=== PATIENT | female | born 2000 | race Two or more races ===

== ENCOUNTER 2024-03-09 12:19 | Emergency (ER) | payer OTHER ==
[~2024-03-09] VITALS: Ht 152.4 cm; Wt 77.8 kg
[2024-03-09 12:59] LABS: Basophils # (auto) 0 10 ^3/uL (0-0.2); Basophils % (auto) 0.5 % (0.0-2.0); Eosinophils # (auto) 0 10 ^3/uL (0-0.8); Eosinophils % (auto) 0.2 % (0.0-7.0); Hematocrit 45.1 % (36.0-46.0); Hemoglobin 15.5 g/dL (12.2-16.2); Lymphocytes # (auto) 1.9 10 ^3/uL (0.4-5.4); Lymphocytes % (auto) 24.6 % (10.0-50.0); Mean Corpuscular Hemoglobin 33.2 pg (28.0-32.0); Mean Corpuscular Hgb Conc. 34.4 g/dL (32.0-36.0); Mean Corpuscular Volume 96.4 fL (80.0-100.0); Monocytes # (auto) 0.4 10 ^3/uL (0-1.3); Monocytes % (auto) 5.3 % (0.0-12.0); Neutrophils # (auto) 5.3 10 ^3/uL (1.6-8.6); Neutrophils % (auto) 69.4 % (37.0-80.0); Red Blood Cells 4.68 10^6/uL (4.0-5.20); Red Cell Distribution Width 12.5 % (11.8-14.3); White Blood Cell 7.6 10^3/uL (4.4-10.8)
[2024-03-09 13:15] LABS: Alanine Aminotransferase 89 U/L (7-40); Albumin 4.9 g/dL (3.2-4.8); Alkaline Phosphatase 49 U/L (46-116); Anion Gap 7 (5-15); Aspartate Aminotransferase 49 U/L (13-40); BUN/Creatinine Ratio 11.4 (10.0-20.0); Blood Urea Nitrogen 8 mg/dL (9-23); Calcium 10.5 mg/dL (8.7-10.4); Carbon Dioxide 24 mmol/L (20-30); Chloride 105 mmol/L (98-107); Glucose 105 mg/dL (74-106); Potassium 3.8 mmol/L (3.5-5.1); Sodium 136 mmol/L (136-145)
[2024-03-09 13:16] LABS: Bilirubin, Total 1.5 mg/dL (0.2-1.0); Total Protein 7.9 g/dL (5.7-8.2)
[2024-03-09 15:13] VITALS: BP 113/76; PULSE 63; RESP 16; TEMP 98.3; O2SAT 100
== END 2024-03-09 15:15 | disposition home or self-care (01) ==
LOC: ER 12:19
DX: O20.0 Threatened abortion (principal); R10.2 Pelvic and perineal pain; Z3A.01 Less than 8 weeks gestation of pregnancy
CPT/HCPCS: 36415; 76801; 76817; 80053; 84702; 85025

== ENCOUNTER 2024-10-23 07:57 | Observation (INO) | payer MEDICAID ==
[~2024-10-23] VITALS: Ht 149.9 cm; Wt 98.0 kg
--- NOTE | 2024-10-23 10:42 | DVH ---
BIOPHYSICAL PROFILE HISTORY: Macrosomia Comparison Study: None TECHNIQUE: Multiple real-time grayscale sonographic images through the gravid uterus of the fetus wi th duplex Doppler color flow and M-mode spectral analysis FINDINGS: BIOPHYSICAL PROFILE: breathing score: 2 movement score: 2 tone score: 2 Quantitative JEFF score: 2 (JEFF: 7.5 Cm.) Total score: 8 The cervix is not visualized Single live fetus in cephalic presentation. heart rate 128 beats per minute. Grade 3, placenta placenta without previa or abruption IMPRESSION: Biophysical profile score: 8
--- NOTE | 2024-10-23 11:08 | DVHDS2 ---
Physician Discharge Progress N Final Diagnosis: macrosomia Operations or Procedures: Operations or Procedures nst,sono Condition on Discharge: Good Disposition: Home Discharge Instructions: Diet: Consistent carbohydrate Activity: No Restrictions, As Tolerated Medications: na Follow Up Care: Specialist: 1d Discharge Statement: "Patient was advised to return to the ER or call 911 if any headaches, dizziness, shortness of breath, chest pain, abdominal pain, bleeding, fevers, or worsening of medical condition. Patient was counseled about treatment plan, medications, possible side effects, patientverbalized understanding. All questions were answered to the best of my ability. This discharge took greater then 30 minutes in planning, reviewing documentat ion, counseling the patient, and discussing with other team members." Visit Coding OBGYN Date of Service: Oct 23, 2024 Billing Provider: SILVIA VARMA DO PROPULSION MOTOR AND GENERATOR REPAIRER Common Visit Codes: 46356-[id number] OBS CARE (HIGH) SILVIA VARMA DO Oct 23, 2024 11:07
[2024-10-24] MEDS ORDERED: PREN1TAB71 OR (13:23)
== END 2024-10-23 12:05 | disposition home or self-care (01) ==
LOC: LDRP 10:03 → UNDOADMOB 10:03 → LDRP 10:08
PROVIDERS: ADMIT Obstetrics & Gynecology; ATTEND Obstetrics & Gynecology
DX: O36.63X0 Maternal care for excessive fetal growth, third trimester, not applicable or unspecified (principal); Z3A.38 38 weeks gestation of pregnancy; Z79.899 Other long term (current) drug therapy
CPT/HCPCS: 59025; 76818; 81002; 94760; 96360; G0378

== ENCOUNTER 2024-10-24 07:06 | Observation (INO) | payer MEDICAID ==
[2024-10-24] MEDS ORDERED: PREN1TAB71 OR (13:23)
--- NOTE | 2024-10-24 14:36 | DVH ---
EXAM: US OBSTERICAL LIMITED HISTORY: low JEFF COMPARISON: 10/23/2024 TECHNIQUE: Real-time grayscale and color images of the gravid uterus were obtained. FINDINGS: Orientation: Cephalic Amniotic Fluid Index: 8.1cm, previously 7.5 cm on 10/23/2024 DVP:4.3 cm Heart Rate: 144 bpm Maternal Cervix: Closed, 3 cm in length in the transabdominal study IMPRESSION: 1. Amniotic fluid index of 8.1 cm, previously 7.5 cm.
--- NOTE | 2024-10-25 15:23 | DVHDS2 ---
Physician Discharge Progress N Final Diagnosis: macrosomia,hx of low carlee Operations or Procedures: Operations or Procedures nst,sono Condition on Discharge: Good Disposition: Home Discharge Instructions: Diet: Regular Activity: No Restrictions, As Tolerated Medications: na Follow Up Care: Specialist: monday for carlee check Discharge Statement: "Patient was advised to return to the ER or call 911 if any headaches, dizziness, shortness of breath, chest pain, abdominal pain, bleeding, fevers, or worsening of medical condition. Patient was counseled about treatment plan, medications, possible side effects, patientverbalized understanding. All questions were answered to the best of my ability. This discharge took greater then 30 minutes in planning, reviewing documentation, counseling the patient, and discussing with other team members." Visit Coding OBGYN Date of Service: Oct 24, 2024 Billing Provider: SILVIA VARMA DO HYDROELECTRIC POWERPLANT SUPERVISOR Common Visit Codes: 33811-EWC/OBS SAME DATE (HIGH) HYDROELECTRIC POWERPLANT SUPERVISOR Procedure Codes: 45423-22- NON-STRESS TEST SILVIA VARMA DO Oct 25, 2024 15:23
== END 2024-10-24 14:37 | disposition home or self-care (01) ==
LOC: LDRP 12:56
PROVIDERS: ADMIT Obstetrics & Gynecology; ATTEND Obstetrics & Gynecology
DX: O36.63X0 Maternal care for excessive fetal growth, third trimester, not applicable or unspecified (principal); O42.913 Preterm premature rupture of membranes, unspecified as to length of time between rupture and onset of labor, third trimester; Z3A.38 38 weeks gestation of pregnancy; Z79.899 Other long term (current) drug therapy; Z98.890 Other specified postprocedural states
CPT/HCPCS: 59025; 76815; 81002; G0378

== ENCOUNTER 2024-10-27 10:04 | Inpatient (IN) | payer MEDICAID ==
[~2024-10-27] VITALS: Ht 149.9 cm; Wt 95.7 kg
[~2024-10-27 10:04] MED LIST: PREN1TAB71 OR
[2024-10-27] MEDS ORDERED: BUTORPHANOL TARTRATE 2 MG/1 ML VIAL IV PRN ×2 (10:15)
[2024-10-27] MEDS ORDERED: LIDOCAINE 2%HCL (LOCAL ANESTH.) INJ 20ML MDV IJ PRN (10:15)
[2024-10-27 10:58] LABS: Basophils # (auto) 0 10 ^3/uL (0-0.2); Basophils % (auto) 0.6 % (0.0-2.0); Eosinophils # (auto) 0.1 10 ^3/uL (0-0.8); Eosinophils % (auto) 1.5 % (0.0-7.0); Hematocrit 36.2 % (36.0-46.0); Hemoglobin 12.3 g/dL (12.2-16.2); Lymphocytes # (auto) 1.4 10 ^3/uL (0.4-5.4); Mean Corpuscular Hemoglobin 32.2 pg (28.0-32.0); Mean Corpuscular Volume 94.5 fL (80.0-100.0); Monocytes # (auto) 0.5 10 ^3/uL (0-1.3); Monocytes % (auto) 7.9 % (0.0-12.0); Neutrophils # (auto) 4.6 10 ^3/uL (1.6-8.6); Nucleated Red Blood Cells % 0.1 %; Platelet Count (auto) 209 10^3/uL (140-450); Red Blood Cells 3.83 10^6/uL (4.0-5.20); Red Cell Distribution Width 13.7 % (11.8-14.3); White Blood Cell 6.7 10^3/uL (4.4-10.8)
[2024-10-27 11:16] LABS: Urine Bacteria FEW /hpf (None Seen); Urine Blood Negative /uL (Negative); Urine Protein, UAD 1+ (Negative); Urine Specific Gravity 1.018 (1.001-1.035); Urine Squamous Epithelial Cell MANY /hpf (<5); Urine Urobilinogen Normal (Negative); Urine WBC 73 /HPF (0-5)
[2024-10-27] MEDS: LACTATED RINGER'S 1,000 ML IV SCH (11:16)
[2024-10-27 11:18] LABS: Urine Clarity Cloudy (Clear); Urine Color Yellow (Yellow)
[2024-10-27 11:20] LABS: Amphetamine Screen, Urine Neg (NEGATIVE); Barbiturate Scree,Urine Neg (NEGATIVE); Benzodiazephine Screen, Urine Neg (NEGATIVE); Cannabinoid Screen, Urine Neg (NEGATIVE); Cocaine Screen, Urine Neg (NEGATIVE); Opiate Scree,Urine Neg (NEGATIVE); Phencyclidine Screen, Urine Neg (NEGATIVE)
[2024-10-27 11:22] LABS: Alanine Aminotransferase 21 U/L (7-40); Albumin 3.5 g/dL (3.2-4.8); Anion Gap 10 (5-15); Aspartate Aminotransferase 16 U/L (13-40); BUN/Creatinine Ratio 15.3 (10.0-20.0); Blood Urea Nitrogen 9 mg/dL (9-23); Calcium 9.5 mg/dL (8.7-10.4); Carbon Dioxide 20 mmol/L (20-31); Chloride 107 mmol/L (98-107); Glucose 102 mg/dL (74-106); Potassium 4.4 mmol/L (3.5-5.1); Sodium 137 mmol/L (136-145)
--- NOTE | 2024-10-27 11:22 | DVH ---
BIOPHYSICAL PROFILE HISTORY: low JEFF Comparison Study: October 23, 2024 TECHNIQUE: Multiple real-time grayscale sonographic images through the gravid uterus of the fetus wi th duplex Doppler color flow and M-mode spectral analysis FINDINGS: BIOPHYSICAL PROFILE: breathing score: 2 movement score: 2 tone score: 2 Quantitative JEFF score: 2 (JEFF: 9.5 Cm.) Total score: 8 Single live fetus in cephalic presentation. heart rate 151 beats per minute. Unremarkable placenta without previa or abruption Questionable nuchal cord is seen. IMPRESSION: 1. Biophysical profile score: 8 2. Unremarkable placenta without previa or abruption 3. Questionable nuchal cord is seen.
[2024-10-27 11:23] LABS: Bilirubin, Total 0.4 mg/dL (0.2-1.0); INR 0.86 (0.9-1.15); Partial Thromboplastin Time 26.5 SEC (24.5-34.5); Prothrombin Time 9.3 sec (9.3-11.8); Total Protein 5.8 g/dL (5.7-8.2)
[2024-10-27 11:26] LABS: Alkaline Phosphatase 176 U/L (46-116)
[2024-10-27] MEDS: miSOPROStol 50 MCG per PRE-CUT 1/2 TAB PO PRN (11:48)
--- NOTE | 2024-10-27 12:50 | DVHHP2 ---
OB CC & HPI Date Date of Admission: Oct 27, 2024 Patient Identification: : 1 Para: 0 EDC: Nov 05, 2024 EGA: [id number] Chief Complaints: Reason for admission: induction of labor Indication for : other Admission Nurse Assessment Rev: No History of Present Complaints PT ISADMITTED FOR IOL DUE TO LOWERING FLD And suspected macrosomia.per pt she desires to be induced.option of pcs d/wpt but pt refuses and wants a trial of labor Past Medical History Cardiac: No pertinent Hx Pulmonary: No pertinent Hx Central Nervous System: No pertinent Hx GI: No pertinent Hx Hemotology/Oncology: No pertinent Hx Hepatobiliary: No pertinent Hx Psychiatric: No pertinent Hx Musculoskeletal: No pertinent Hx Rheumotologic: No pertinent Hx Infectious Disease: No peritnent Hx ENT: No pertinent Hx Renal/: No pertinent Hx Endocrine: No pertinent Hx Dermatology: No pertinent Hx Past Surgical History: No pertinent Hx OB History OB History Care: Good Care Ultrasounds: Normal mid trimester US Obstetrical Complications: None Medical Complications: None Allergies: Coded Allergies: NO KNOWN ALLERGIES (Unverified , 03/09/24) Home Meds Reported Medications Vit W/ Ferrous Fumara (PNV PLUS MULTIVI) Plus Tab, 1 OR, TAB 10/24/24 Current Medications Current Medications Medications (Trade) Dose Ordered Sig/Lillian Route PRN Reason Start Time Stop Time Status Last Admin Lactated Ringer's 1,000 ml @ 125 mls/hr Q8H IV 10/27/24 10:15 10/27/24 11:16 Witch Monica (Tucks) 1 pad PRN PRN TOP PERINEAL AREA DISCOMFORT 10/27/24 10:15 Sodium Lauryl Sulfate (Phisoderm) 240 ml PRN PRN TOP PERINEAL AREA DISCOMFORT 10/27/24 10:15 Benzocaine (Dermoplast) 1 applic PRN PRN TOP PERINEAL AREA DISCOMFORT 10/27/24 10:15 Butorphanol Tartrate (Stadol Injection) 1 mg Q4HPRN PRN IV MODERATE PAIN (4-6 PAIN SCALE) 10/27/24 10:15 Butorphanol Tartrate (Stadol Injection) 2 mg Q4HPRN PRN IV SEVERE PAIN (7-10 PAIN SCALE) 10/27/24 10:15 Misoprostol (Cytotec) 50 mcg Q4HPRN PRN PO CERVICAL RIPENING 10/27/24 10:15 10/27/24 11:48 Lidocaine HCl (Xylocaine) 20 ml ONCE PRN IJ PERINEAL AREA DISCOMFORT 10/27/24 10:15 Family & Social History Family/Social History Blood Type: O+ Rubella: immune RPR/VDRL: Negative GBS Status: Negative HBsAG: Negative Review of Systems Constitutional: No symptom reported Ears, Nose, & Throat: No symptom reported Eyes: No symptom reported Pulmonary/Respiratory: No symptom reported Cardiovascular: No symptom reported Gastrointestinal: No symptom reported Genitourinary: No symptom reported Musculoskeletal: No symptom reported Skin: No symptom reported Psychiatric: No symptom reported Endocrine: No symptom reported Hemotologic/Lymphatic: No symptom reported OB Admission Exam Physical Exam HEENT: TMs Normal, Fontanelles Normal, Nasal Mucosa Normal, Eyes non-injected, Oropharynx Normal, PERRLA, Moist Membranes, EOMI Heart: Rhythm Normal Lungs: Clear Abdomen: Non tender Extremities: Normal Reflexes: Normal Cervical Dilatation: Fingertip Effacement: 25% Station: -3 Membranes: Intact Heart Rate: 130's Accelerations: Accelerations Present Decelerations: No Decelerations Short Term Variability: Present Wire Straightener Variability: Average (6-25) Contractions on Admission: >10 Minutes Apart Intensity: Mild OB Plan Plan Admitting Diagnosis: Induction of labor Plan: Expectant Management, Induction Induction Methd: Misoprostol protocol Other Plan: pt refsued pcs for possib of macrosomia ,she understands risks and compl of shoulder dytocia,erbs palsy,inc risk of infection .she would like trial of labor.informed consent obtained Visit Coding OBGYN Date of Service: Oct 27, 2024 Billing Provider: SILVIA VARMA DO TEMPLATE FITTER Common Visit Codes: 23400-XBH/OBS SAME DATE (HIGH) TEMPLATE FITTER Consultation Codes: 88241-Y/U INPATIENT CONSULT (HIGH) TEMPLATE FITTER Procedure Codes: 91313-60- NON-STRESS TEST SILVIA VARMA DO Oct 27, 2024 12:50
--- NOTE | 2024-10-27 13:25 | DVHPN2 ---
Chief Complaints Patient reports: No new complaints Nursing reports: No new complaints Objective Medications Current Medications Medications (Trade) Dose Ordered Sig/Lillian Route PRN Reason Start Time Stop Time Status Last Admin Benzocaine (Dermoplast) 1 applic PRN PRN TOP PERINEAL AREA DISCOMFORT 10/27/24 10:15 Butorphanol Tartrate (Stadol Injection) 1 mg Q4HPRN PRN IV MODERATE PAIN (4-6 PAIN SCALE) 10/27/24 10:15 Butorphanol Tartrate (Stadol Injection) 2 mg Q4HPRN PRN IV SEVERE PAIN (7-10 PAIN SCALE) 10/27/24 10:15 Lactated Ringer's 1,000 ml @ 125 mls/hr Q8H IV 10/27/24 10:15 10/27/24 11:16 Lidocaine HCl (Xylocaine) 20 ml ONCE PRN IJ PERINEAL AREA DISCOMFORT 10/27/24 10:15 Misoprostol (Cytotec) 50 mcg Q4HPRN PRN PO CERVICAL RIPENING 10/27/24 10:15 10/27/24 11:48 Sodium Lauryl Sulfate (Phisoderm) 240 ml PRN PRN TOP PERINEAL AREA DISCOMFORT 10/27/24 10:15 Witch Monica (Tucks) 1 pad PRN PRN TOP PERINEAL AREA DISCOMFORT 10/27/24 10:15 Others ve-unchanged exam Studies Laboratory Tests 10/27/24 10:49 Test 10/27/24 10:49 Range/Units Serum Glucose 102 74-106 mg/dL Ass/Plan Assessment iol Plan rec one cytotec having some cramping proceed with 2nd cytotec by 3:30 Visit Coding OBGYN Date of Service: Oct 27, 2024 Billing Provider: SILVIA VARMA DO TOWEL DISTRIBUTOR Common Visit Codes: 25745-[id number] INP/OBS CARE(HIGH) TOWEL DISTRIBUTOR Consultation Codes: [id number] CONSULT <20MIN TOWEL DISTRIBUTOR Procedure Codes: 76505-96- NON-STRESS TEST SILVIA VARMA DO Oct 27, 2024 13:25
[2024-10-27 19:05] LABS: Protein, Urine 46.3 mg/dL (1-14)
[2024-10-27 19:07] LABS: Creatinine, Urine 93.27 mg/dL (30.0-125.0); Urine Protein/Creatinine Ratio 0.5
[2024-10-27] MEDS: LACTATED RINGER'S 500 ML IV ONE (20:30)
[2024-10-27] MEDS ORDERED: ePHEDrine SULFATE 50 MG/ML AMP IV ONE (20:45)
[2024-10-27] MEDS ORDERED: NALOXONE HCL 0.4 MG/ML VIAL IV ONE (20:45)
--- NOTE | 2024-10-27 20:46 | DVHPN2 ---
CNM Labor Progress Note Date and Time Seen Date Seen: Oct 27, 2024 Time Seen: 19:50 Subjective Patient reports: No new complaints Monitoring Method Monitoring Method: External Heart Rate Heart Rate Baseline: 135 Heart Rate Variability: Moderate Presence of FHR Accelerations: Yes Presence of FHR Decelerations: No Changes in Trends of Patterns: No Are all 5 Components of the FH: Yes Contractions Contractions Frequency: Occasional, Other Duration of Contraction: 50 Contractions Intensity: Mild Contractions Resting Tone: Relaxed Membranes Membranes: Intact Vaginal Exam Vag Exam Deferred: No Vaginal Exam Dilation: 0 Vaginal Exam Effacement: 50 Vaginal Exam Presentation: VTX Vaginal Exam Show: None Medications Medications - Pitocin: No Medication - Epidural: No Medication - Other Misoprostol dose #3 administered at 20:01 Lab Results Lab Results Current Medications Medications (Trade) Dose Ordered Sig/Lillian Start Time Stop Time Status Last Admin Dose Admin Lactated Ringer's 1,000 ml @ 125 mls/hr Q8H 10/27/24 10:15 10/27/24 23:43 125 MLS/HR Shonna Anderson (Tucks) 1 pad PRN PRN 10/27/24 10:15 10/28/24 04:20 1 PAD Sodium Lauryl Sulfate (Phisoderm) 240 ml PRN PRN 10/27/24 10:15 10/28/24 04:20 240 ML Benzocaine (Dermoplast) 1 applic PRN PRN 10/27/24 10:15 10/28/24 04:20 1 APPLIC Misoprostol (Cytotec) 50 mcg Q4HPRN PRN 10/27/24 10:15 10/28/24 05:52 DC 10/27/24 20:01 50 MCG Oxytocin 500 ml @ 999 mls/hr Q31M ONCE 10/27/24 10:15 10/27/24 11:11 DC 10/28/24 04:33 999 MLS/HR Oxytocin 500 ml @ 125 mls/hr Q4H ONCE 10/27/24 10:45 10/27/24 14:44 DC 10/28/24 05:06 125 MLS/HR Lactated Ringer's 500 ml @ 500 mls/hr Q1H ONCE 10/27/24 20:45 10/27/24 21:44 DC 10/27/24 20:30 500 MLS/HR Hydralazine HCl (Apresoline Injection) 5 mg Q20MP PRN 10/27/24 22:30 Magnesium Sulfate 1,000 ml @ 50 mls/hr Q20H 10/27/24 23:45 Magnesium Sulfate 100 ml @ 300 mls/hr ONCE ONCE 10/27/24 23:45 10/28/24 00:04 DC Lorazepam (Ativan Inj) 4 mg ONCE ONCE 10/27/24 23:45 10/27/24 23:53 DC Cefazolin Sodium/ Dextrose 50 ml @ 50 mls/hr ONCE ONCE 10/28/24 01:00 10/28/24 01:59 DC 10/28/24 00:57 50 MLS/HR Laboratory Tests Test 10/28/24 04:37 10/27/24 10:49 10/27/24 10:35 Range/Units Magnesium Lvl (Mg Sulfate Therapy) Pending White Blood Count 6.7 4.4-10.8 10^3/uL Red Blood Count 3.83 L 4.0-5.20 10^6/uL Hemoglobin 12.3 12.2-16.2 g/dL Hematocrit 36.2 36.0-46.0 % Mean Corpuscular Volume 94.5 80.0-100.0 fL Mean Corpuscular Hemoglobin 32.2 H 28.0-32.0 pg Mean Corpuscular Hemoglobin Concent 34.0 32.0-36.0 g/dL Red Cell Distribution Width 13.7 11.8-14.3 % Platelet Count 209 140-450 10^3/uL Mean Platelet Volume 10.2 6.9-10.8 fL Neutrophils (%) (Auto) 69.0 37.0-80.0 % Lymphocytes (%) (Auto) 21.0 10.0-50.0 % Monocytes (%) (Auto) 7.9 0.0-12.0 % Eosinophils (%) (Auto) 1.5 0.0-7.0 % Basophils (%) (Auto) 0.6 0.0-2.0 % Neutrophils # (Auto) 4.6 1.6-8.6 10 ^3/uL Lymphocytes # (Auto) 1.4 0.4-5.4 10 ^3/uL Monocytes # (Auto) 0.5 0-1.3 10 ^3/uL Eosinophils # (Auto) 0.1 0-0.8 10 ^3/uL Basophils # (Auto) 0 0-0.2 10 ^3/uL Nucleated Red Blood Cells 0.1 % Prothrombin Time 9.3 9.3-11.8 sec Prothrombin Time INR 0.86 L 0.9-1.15 Activated Partial Thromboplast Time 26.5 24.5-34.5 SEC Sodium Level 137 136-145 mmol/L Potassium Level 4.4 3.5-5.1 mmol/L Chloride Level 107 98-107 mmol/L Carbon Dioxide Level 20 20-31 mmol/L Anion Gap 10 5-15 Blood Urea Nitrogen 9 9-23 mg/dL Creatinine 0.59 0.550-1.02 mg/dL Glomerular Filtration Rate Calc 128 >90 mL/min BUN/Creatinine Ratio 15.3 10.0-20.0 Serum Glucose 102 74-106 mg/dL Uric Acid 4.7 3.1-7.8 mg/dL Calcium Level 9.5 8.7-10.4 mg/dL Total Bilirubin 0.4 0.2-1.0 mg/dL Aspartate Amino Transferase (AST) 16 13-40 U/L Alanine Aminotransferase (ALT) 21 7-40 U/L Alkaline Phosphatase 176 H 46-116 U/L Total Protein 5.8 5.7-8.2 g/dL Albumin 3.5 3.2-4.8 g/dL Rapid Plasma Reagin Pending Treponema pallidum Ab (TP-PA) Pending Hepatitis C Antibody Pending Urine Color Yellow Yellow Urine Clarity Cloudy H Clear Urine pH 6.0 5.0-9.0 Urine Specific [place] 1.018 1.001-1.035 Urine Protein 1+ H Negative Urine Ketones Negative Negative Urine Blood Negative Negative /uL Urine Nitrite Negative Negative Urine Bilirubin Negative Negative Urine Urobilinogen Normal Negative mg/dL Urine Leukocyte Esterase 3+ Negative /uL Urine RBC 3 0 - 4 /hpf Urine Microscopic WBC 73 H 0-5 /HPF Urine Squamous Epithelial Cells Many <5 /hpf Urine Bacteria Few H None Seen /hpf Urine Creatinine 93.27 30.0-125.0 mg/dL Urine Protein/Creatinine Ratio 0.50 Urine Glucose Trace Normal mg/dL Urine Total Protein 46.3 H 1-14 mg/dL Urine Opiates Screen Neg NEGATIVE Urine Fentanyl Screen Neg NEGATIVE Urine Barbiturates Screen Neg NEGATIVE Urine Phencyclidine Screen Neg NEGATIVE Urine Amphetamines Screen Neg NEGATIVE Urine Benzodiazepines Screen Neg NEGATIVE Urine Cocaine Screen Neg NEGATIVE Urine Cannabinoids Screen Neg NEGATIVE Assessment Assessment IUP at 38w 5d LGA Decreased Amniotic Fluid IOL for above Pre E w/o severe features Category 1 FHR tracing Plan Plan Continue EFM per policy Encourage frequent position change to facilitate labor Intrauterine resuscitation PRN Labor analgesia PRN Anticipate Plan discussed with: Patient, Spouse, Other (Mother in law) EMELYN SAM CNM Oct 27, 2024 20:46
[2024-10-27] MEDS: ROPIVACAINE HCL 200 ML ONE (21:27)
[2024-10-27] MEDS ORDERED: TERBUTALINE SULFATE 1 MG/ML 1ML VIAL SC PRN (21:45)
--- NOTE | 2024-10-27 22:17 | DVHPN2 ---
DIPTI Labor Progress Note Date and Time Seen Date Seen: Oct 27, 2024 Time Seen: 21:54 Subjective Patient reports: No new complaints Monitoring Method Monitoring Method: External Heart Rate Heart Rate Variability: Moderate Presence of FHR Accelerations: Yes Presence of FHR Decelerations: Yes Heart Rate Type of Decel: Variable Decelerations Are all 5 Components of the FH: Yes Contractions Contractions Frequency: Other (q1-2min) Duration of Contraction: 80 Contractions Intensity: Moderate Contractions Resting Tone: Relaxed Membranes Membranes: Ruptured Amniotic Fluid Color: Clear Vaginal Exam Vag Exam Deferred: No Vaginal Exam Dilation: 3 Vaginal Exam Effacement: 70 Vaginal Exam Station: -3 Vaginal Exam Presentation: VTX Medications Medications - Pitocin: No Medication - Epidural: Yes Medication - Other Misoprostol Dose #3 at 2000 Lab Results Lab Results Current Medications Medications (Trade) Dose Ordered Sig/Lillian Start Time Stop Time Status Last Admin Dose Admin Lactated Ringer's 1,000 ml @ 125 mls/hr Q8H 10/27/24 10:15 10/27/24 23:43 125 MLS/HR Shonna Anderson (Tucks) 1 pad PRN PRN 10/27/24 10:15 10/28/24 04:20 1 PAD Sodium Lauryl Sulfate (Phisoderm) 240 ml PRN PRN 10/27/24 10:15 10/28/24 04:20 240 ML Benzocaine (Dermoplast) 1 applic PRN PRN 10/27/24 10:15 10/28/24 04:20 1 APPLIC Misoprostol (Cytotec) 50 mcg Q4HPRN PRN 10/27/24 10:15 10/28/24 05:52 DC 10/27/24 20:01 50 MCG Oxytocin 500 ml @ 999 mls/hr Q31M ONCE 10/27/24 10:15 10/27/24 11:11 DC 10/28/24 04:33 999 MLS/HR Oxytocin 500 ml @ 125 mls/hr Q4H ONCE 10/27/24 10:45 10/27/24 14:44 DC 10/28/24 05:06 125 MLS/HR Lactated Ringer's 500 ml @ 500 mls/hr Q1H ONCE 10/27/24 20:45 10/27/24 21:44 DC 10/27/24 20:30 500 MLS/HR Hydralazine HCl (Apresoline Injection) 5 mg Q20MP PRN 10/27/24 22:30 Magnesium Sulfate 1,000 ml @ 50 mls/hr Q20H 10/27/24 23:45 Magnesium Sulfate 100 ml @ 300 mls/hr ONCE ONCE 10/27/24 23:45 10/28/24 00:04 DC Lorazepam (Ativan Inj) 4 mg ONCE ONCE 10/27/24 23:45 10/27/24 23:53 DC Cefazolin Sodium/ Dextrose 50 ml @ 50 mls/hr ONCE ONCE 10/28/24 01:00 10/28/24 01:59 DC 10/28/24 00:57 50 MLS/HR Laboratory Tests Test 10/28/24 04:37 10/27/24 10:49 10/27/24 10:35 Range/Units Magnesium Lvl (Mg Sulfate Therapy) Pending White Blood Count 6.7 4.4-10.8 10^3/uL Red Blood Count 3.83 L 4.0-5.20 10^6/uL Hemoglobin 12.3 12.2-16.2 g/dL Hematocrit 36.2 36.0-46.0 % Mean Corpuscular Volume 94.5 80.0-100.0 fL Mean Corpuscular Hemoglobin 32.2 H 28.0-32.0 pg Mean Corpuscular Hemoglobin Concent 34.0 32.0-36.0 g/dL Red Cell Distribution Width 13.7 11.8-14.3 % Platelet Count 209 140-450 10^3/uL Mean Platelet Volume 10.2 6.9-10.8 fL Neutrophils (%) (Auto) 69.0 37.0-80.0 % Lymphocytes (%) (Auto) 21.0 10.0-50.0 % Monocytes (%) (Auto) 7.9 0.0-12.0 % Eosinophils (%) (Auto) 1.5 0.0-7.0 % Basophils (%) (Auto) 0.6 0.0-2.0 % Neutrophils # (Auto) 4.6 1.6-8.6 10 ^3/uL Lymphocytes # (Auto) 1.4 0.4-5.4 10 ^3/uL Monocytes # (Auto) 0.5 0-1.3 10 ^3/uL Eosinophils # (Auto) 0.1 0-0.8 10 ^3/uL Basophils # (Auto) 0 0-0.2 10 ^3/uL Nucleated Red Blood Cells 0.1 % Prothrombin Time 9.3 9.3-11.8 sec Prothrombin Time INR 0.86 L 0.9-1.15 Activated Partial Thromboplast Time 26.5 24.5-34.5 SEC Sodium Level 137 136-145 mmol/L Potassium Level 4.4 3.5-5.1 mmol/L Chloride Level 107 98-107 mmol/L Carbon Dioxide Level 20 20-31 mmol/L Anion Gap 10 5-15 Blood Urea Nitrogen 9 9-23 mg/dL Creatinine 0.59 0.550-1.02 mg/dL Glomerular Filtration Rate Calc 128 >90 mL/min BUN/Creatinine Ratio 15.3 10.0-20.0 Serum Glucose 102 74-106 mg/dL Uric Acid 4.7 3.1-7.8 mg/dL Calcium Level 9.5 8.7-10.4 mg/dL Total Bilirubin 0.4 0.2-1.0 mg/dL Aspartate Amino Transferase (AST) 16 13-40 U/L Alanine Aminotransferase (ALT) 21 7-40 U/L Alkaline Phosphatase 176 H 46-116 U/L Total Protein 5.8 5.7-8.2 g/dL Albumin 3.5 3.2-4.8 g/dL Rapid Plasma Reagin Pending Treponema pallidum Ab (TP-PA) Pending Hepatitis C Antibody Pending Urine Color Yellow Yellow Urine Clarity Cloudy H Clear Urine pH 6.0 5.0-9.0 Urine Specific [place] 1.018 1.001-1.035 Urine Protein 1+ H Negative Urine Ketones Negative Negative Urine Blood Negative Negative /uL Urine Nitrite Negative Negative Urine Bilirubin Negative Negative Urine Urobilinogen Normal Negative mg/dL Urine Leukocyte Esterase 3+ Negative /uL Urine RBC 3 0 - 4 /hpf Urine Microscopic WBC 73 H 0-5 /HPF Urine Squamous Epithelial Cells Many <5 /hpf Urine Bacteria Few H None Seen /hpf Urine Creatinine 93.27 30.0-125.0 mg/dL Urine Protein/Creatinine Ratio 0.50 Urine Glucose Trace Normal mg/dL Urine Total Protein 46.3 H 1-14 mg/dL Urine Opiates Screen Neg NEGATIVE Urine Fentanyl Screen Neg NEGATIVE Urine Barbiturates Screen Neg NEGATIVE Urine Phencyclidine Screen Neg NEGATIVE Urine Amphetamines Screen Neg NEGATIVE Urine Benzodiazepines Screen Neg NEGATIVE Urine Cocaine Screen Neg NEGATIVE Urine Cannabinoids Screen Neg NEGATIVE Consulting with Regarding Elevated BP, Labor & membrane status. (Co-managing patient with MD) Assessment Assessment IUP at 38w 5d LGA Decreased Fluid IOL for above Pre E w/o severe features Spontaneous Rupture of Membranes Category II FHR Tracing Plan Plan Expectant, supportive management of labor Manage BP with IV hydralazine Magnesium Sulfate therapy when in active labor; will start sooner if needed Continue EFM Intrauterine resuscitation PRN Frequent Position change to facilitate descent Anticipate Above plan in collaboration with Dr. Poon Plan discussed with: Patient, Spouse, Other (Mother in Law) EMELYN SAM CNM Oct 27, 2024 22:17
[2024-10-27] MEDS ORDERED: hydrALAZINE HCL 20 MG/ML VL IV PRN (22:30)
[2024-10-27] MEDS ORDERED: LORazepam 2MG/ML-1ML VIAL IV ONE (23:45)
[2024-10-27] MEDS: MAGNESIUM SULFATE 100 ML IV ONE ×2 (23:45)
[2024-10-28] VITALS (17 sets, daily range): BP systolic 122–145; BP diastolic 62–75; PULSE 63–113; RESP 16–18; TEMP 97.8–98.7; O2SAT 96–98
[2024-10-28] MEDS: MAGNESIUM SULFATE 40MG/ML 1,000 ML IV ONE (00:03)
[2024-10-28] MEDS: ceFAZolin 2 GM/D5W50ml 50 ML IV ONE (00:57)
--- NOTE | 2024-10-28 01:48 | DVHPN2 ---
DIPTI Labor Progress Note Date and Time Seen Date Seen: Oct 27, 2024 Time Seen: 23:35 Subjective Patient reports: No new complaints Monitoring Method Monitoring Method: External Heart Rate Heart Rate Baseline: 140 Heart Rate Variability: Moderate Presence of FHR Accelerations: Yes Presence of FHR Decelerations: Yes Heart Rate Type of Decel: Variable Decelerations, Late Decelerations Changes in Trends of Patterns: No Are all 5 Components of the FH: Yes Contractions Contractions Frequency: Other (2-3min) Duration of Contraction: 80 Contractions Intensity: Moderate Contractions Resting Tone: Relaxed Membranes Membranes: Ruptured Amniotic Fluid Color: Clear Vaginal Exam Vag Exam Deferred: No Vaginal Exam Dilation: 9 Vaginal Exam Effacement: 90 Vaginal Exam Station: -2 (VE by RN) Vaginal Exam Presentation: VTX Medications Medications - Pitocin: No Medication - Epidural: Yes Medication - Other Misoprostol 3rd dose given at 2000 Lab Results Lab Results Current Medications Medications (Trade) Dose Ordered Sig/Lillian Start Time Stop Time Status Last Admin Dose Admin Lactated Ringer's 1,000 ml @ 125 mls/hr Q8H 10/27/24 10:15 10/27/24 23:43 125 MLS/HR Witmarybeth Monica (Tucks) 1 pad PRN PRN 10/27/24 10:15 10/28/24 04:20 1 PAD Sodium Lauryl Sulfate (Phisoderm) 240 ml PRN PRN 10/27/24 10:15 10/28/24 04:20 240 ML Benzocaine (Dermoplast) 1 applic PRN PRN 10/27/24 10:15 10/28/24 04:20 1 APPLIC Misoprostol (Cytotec) 50 mcg Q4HPRN PRN 10/27/24 10:15 10/28/24 05:52 DC 10/27/24 20:01 50 MCG Oxytocin 500 ml @ 999 mls/hr Q31M ONCE 10/27/24 10:15 10/27/24 11:11 DC 10/28/24 04:33 999 MLS/HR Oxytocin 500 ml @ 125 mls/hr Q4H ONCE 10/27/24 10:45 10/27/24 14:44 DC 10/28/24 05:06 125 MLS/HR Lactated Ringer's 500 ml @ 500 mls/hr Q1H ONCE 10/27/24 20:45 10/27/24 21:44 DC 10/27/24 20:30 500 MLS/HR Hydralazine HCl (Apresoline Injection) 5 mg Q20MP PRN 10/27/24 22:30 Magnesium Sulfate 1,000 ml @ 50 mls/hr Q20H 10/27/24 23:45 Magnesium Sulfate 100 ml @ 300 mls/hr ONCE ONCE 10/27/24 23:45 10/28/24 00:04 DC Lorazepam (Ativan Inj) 4 mg ONCE ONCE 10/27/24 23:45 10/27/24 23:53 DC Cefazolin Sodium/ Dextrose 50 ml @ 50 mls/hr ONCE ONCE 10/28/24 01:00 10/28/24 01:59 DC 10/28/24 00:57 50 MLS/HR Laboratory Tests Test 10/28/24 04:37 10/27/24 10:49 10/27/24 10:35 Range/Units Magnesium Lvl (Mg Sulfate Therapy) Pending White Blood Count 6.7 4.4-10.8 10^3/uL Red Blood Count 3.83 L 4.0-5.20 10^6/uL Hemoglobin 12.3 12.2-16.2 g/dL Hematocrit 36.2 36.0-46.0 % Mean Corpuscular Volume 94.5 80.0-100.0 fL Mean Corpuscular Hemoglobin 32.2 H 28.0-32.0 pg Mean Corpuscular Hemoglobin Concent 34.0 32.0-36.0 g/dL Red Cell Distribution Width 13.7 11.8-14.3 % Platelet Count 209 140-450 10^3/uL Mean Platelet Volume 10.2 6.9-10.8 fL Neutrophils (%) (Auto) 69.0 37.0-80.0 % Lymphocytes (%) (Auto) 21.0 10.0-50.0 % Monocytes (%) (Auto) 7.9 0.0-12.0 % Eosinophils (%) (Auto) 1.5 0.0-7.0 % Basophils (%) (Auto) 0.6 0.0-2.0 % Neutrophils # (Auto) 4.6 1.6-8.6 10 ^3/uL Lymphocytes # (Auto) 1.4 0.4-5.4 10 ^3/uL Monocytes # (Auto) 0.5 0-1.3 10 ^3/uL Eosinophils # (Auto) 0.1 0-0.8 10 ^3/uL Basophils # (Auto) 0 0-0.2 10 ^3/uL Nucleated Red Blood Cells 0.1 % Prothrombin Time 9.3 9.3-11.8 sec Prothrombin Time INR 0.86 L 0.9-1.15 Activated Partial Thromboplast Time 26.5 24.5-34.5 SEC Sodium Level 137 136-145 mmol/L Potassium Level 4.4 3.5-5.1 mmol/L Chloride Level 107 98-107 mmol/L Carbon Dioxide Level 20 20-31 mmol/L Anion Gap 10 5-15 Blood Urea Nitrogen 9 9-23 mg/dL Creatinine 0.59 0.550-1.02 mg/dL Glomerular Filtration Rate Calc 128 >90 mL/min BUN/Creatinine Ratio 15.3 10.0-20.0 Serum Glucose 102 74-106 mg/dL Uric Acid 4.7 3.1-7.8 mg/dL Calcium Level 9.5 8.7-10.4 mg/dL Total Bilirubin 0.4 0.2-1.0 mg/dL Aspartate Amino Transferase (AST) 16 13-40 U/L Alanine Aminotransferase (ALT) 21 7-40 U/L Alkaline Phosphatase 176 H 46-116 U/L Total Protein 5.8 5.7-8.2 g/dL Albumin 3.5 3.2-4.8 g/dL Rapid Plasma Reagin Pending Treponema pallidum Ab (TP-PA) Pending Hepatitis C Antibody Pending Urine Color Yellow Yellow Urine Clarity Cloudy H Clear Urine pH 6.0 5.0-9.0 Urine Specific [place] 1.018 1.001-1.035 Urine Protein 1+ H Negative Urine Ketones Negative Negative Urine Blood Negative Negative /uL Urine Nitrite Negative Negative Urine Bilirubin Negative Negative Urine Urobilinogen Normal Negative mg/dL Urine Leukocyte Esterase 3+ Negative /uL Urine RBC 3 0 - 4 /hpf Urine Microscopic WBC 73 H 0-5 /HPF Urine Squamous Epithelial Cells Many <5 /hpf Urine Bacteria Few H None Seen /hpf Urine Creatinine 93.27 30.0-125.0 mg/dL Urine Protein/Creatinine Ratio 0.50 Urine Glucose Trace Normal mg/dL Urine Total Protein 46.3 H 1-14 mg/dL Urine Opiates Screen Neg NEGATIVE Urine Fentanyl Screen Neg NEGATIVE Urine Barbiturates Screen Neg NEGATIVE Urine Phencyclidine Screen Neg NEGATIVE Urine Amphetamines Screen Neg NEGATIVE Urine Benzodiazepines Screen Neg NEGATIVE Urine Cocaine Screen Neg NEGATIVE Urine Cannabinoids Screen Neg NEGATIVE Assessment Assessment IUP at 38w 5d LGA decreased amniotic Fluid IOL for above Active Labor Category II FHR Tracing Pre E w/o severe features Plan Plan Magnesium Sulfate Therapy Continue EFM Frequent position change to facilitate descent Intrauterine resuscitation PRN Expectant and supportive management Anticipate (Co-managing with Dr Poon) Plan discussed with: Patient, Spouse EMELYN SAM CNM Oct 28, 2024 01:48
--- NOTE | 2024-10-28 01:54 | DVHPN2 ---
DIPTI Labor Progress Note Date and Time Seen Date Seen: Oct 28, 2024 Time Seen: 01:50 Subjective Patient reports: No new complaints Monitoring Method Monitoring Method: External Heart Rate Heart Rate Baseline: 130 Heart Rate Variability: Moderate Presence of FHR Accelerations: Yes Presence of FHR Decelerations: No Are all 5 Components of the FH: Yes Contractions Contractions Frequency: Other (2-4.5) Duration of Contraction: 90 Contractions Intensity: Moderate Contractions Resting Tone: Relaxed Membranes Membranes: Ruptured Amniotic Fluid Color: Clear Vaginal Exam Vag Exam Deferred: Yes Medications Medication - Epidural: Yes Lab Results Lab Results Current Medications Medications (Trade) Dose Ordered Sig/Lillian Start Time Stop Time Status Last Admin Dose Admin Lactated Ringer's 1,000 ml @ 125 mls/hr Q8H 10/27/24 10:15 10/27/24 23:43 125 MLS/HR Shonna Anderson (Tucks) 1 pad PRN PRN 10/27/24 10:15 10/28/24 04:20 1 PAD Sodium Lauryl Sulfate (Phisoderm) 240 ml PRN PRN 10/27/24 10:15 10/28/24 04:20 240 ML Benzocaine (Dermoplast) 1 applic PRN PRN 10/27/24 10:15 10/28/24 04:20 1 APPLIC Misoprostol (Cytotec) 50 mcg Q4HPRN PRN 10/27/24 10:15 10/28/24 05:52 DC 10/27/24 20:01 50 MCG Oxytocin 500 ml @ 999 mls/hr Q31M ONCE 10/27/24 10:15 10/27/24 11:11 DC 10/28/24 04:33 999 MLS/HR Oxytocin 500 ml @ 125 mls/hr Q4H ONCE 10/27/24 10:45 10/27/24 14:44 DC 10/28/24 05:06 125 MLS/HR Lactated Ringer's 500 ml @ 500 mls/hr Q1H ONCE 10/27/24 20:45 10/27/24 21:44 DC 10/27/24 20:30 500 MLS/HR Hydralazine HCl (Apresoline Injection) 5 mg Q20MP PRN 10/27/24 22:30 Magnesium Sulfate 1,000 ml @ 50 mls/hr Q20H 10/27/24 23:45 Magnesium Sulfate 100 ml @ 300 mls/hr ONCE ONCE 10/27/24 23:45 10/28/24 00:04 DC Lorazepam (Ativan Inj) 4 mg ONCE ONCE 10/27/24 23:45 10/27/24 23:53 DC Cefazolin Sodium/ Dextrose 50 ml @ 50 mls/hr ONCE ONCE 10/28/24 01:00 10/28/24 01:59 DC 10/28/24 00:57 50 MLS/HR Laboratory Tests Test 10/28/24 04:37 10/27/24 10:49 10/27/24 10:35 Range/Units Magnesium Lvl (Mg Sulfate Therapy) Pending White Blood Count 6.7 4.4-10.8 10^3/uL Red Blood Count 3.83 L 4.0-5.20 10^6/uL Hemoglobin 12.3 12.2-16.2 g/dL Hematocrit 36.2 36.0-46.0 % Mean Corpuscular Volume 94.5 80.0-100.0 fL Mean Corpuscular Hemoglobin 32.2 H 28.0-32.0 pg Mean Corpuscular Hemoglobin Concent 34.0 32.0-36.0 g/dL Red Cell Distribution Width 13.7 11.8-14.3 % Platelet Count 209 140-450 10^3/uL Mean Platelet Volume 10.2 6.9-10.8 fL Neutrophils (%) (Auto) 69.0 37.0-80.0 % Lymphocytes (%) (Auto) 21.0 10.0-50.0 % Monocytes (%) (Auto) 7.9 0.0-12.0 % Eosinophils (%) (Auto) 1.5 0.0-7.0 % Basophils (%) (Auto) 0.6 0.0-2.0 % Neutrophils # (Auto) 4.6 1.6-8.6 10 ^3/uL Lymphocytes # (Auto) 1.4 0.4-5.4 10 ^3/uL Monocytes # (Auto) 0.5 0-1.3 10 ^3/uL Eosinophils # (Auto) 0.1 0-0.8 10 ^3/uL Basophils # (Auto) 0 0-0.2 10 ^3/uL Nucleated Red Blood Cells 0.1 % Prothrombin Time 9.3 9.3-11.8 sec Prothrombin Time INR 0.86 L 0.9-1.15 Activated Partial Thromboplast Time 26.5 24.5-34.5 SEC Sodium Level 137 136-145 mmol/L Potassium Level 4.4 3.5-5.1 mmol/L Chloride Level 107 98-107 mmol/L Carbon Dioxide Level 20 20-31 mmol/L Anion Gap 10 5-15 Blood Urea Nitrogen 9 9-23 mg/dL Creatinine 0.59 0.550-1.02 mg/dL Glomerular Filtration Rate Calc 128 >90 mL/min BUN/Creatinine Ratio 15.3 10.0-20.0 Serum Glucose 102 74-106 mg/dL Uric Acid 4.7 3.1-7.8 mg/dL Calcium Level 9.5 8.7-10.4 mg/dL Total Bilirubin 0.4 0.2-1.0 mg/dL Aspartate Amino Transferase (AST) 16 13-40 U/L Alanine Aminotransferase (ALT) 21 7-40 U/L Alkaline Phosphatase 176 H 46-116 U/L Total Protein 5.8 5.7-8.2 g/dL Albumin 3.5 3.2-4.8 g/dL Rapid Plasma Reagin Pending Treponema pallidum Ab (TP-PA) Pending Hepatitis C Antibody Pending Urine Color Yellow Yellow Urine Clarity Cloudy H Clear Urine pH 6.0 5.0-9.0 Urine Specific [place] 1.018 1.001-1.035 Urine Protein 1+ H Negative Urine Ketones Negative Negative Urine Blood Negative Negative /uL Urine Nitrite Negative Negative Urine Bilirubin Negative Negative Urine Urobilinogen Normal Negative mg/dL Urine Leukocyte Esterase 3+ Negative /uL Urine RBC 3 0 - 4 /hpf Urine Microscopic WBC 73 H 0-5 /HPF Urine Squamous Epithelial Cells Many <5 /hpf Urine Bacteria Few H None Seen /hpf Urine Creatinine 93.27 30.0-125.0 mg/dL Urine Protein/Creatinine Ratio 0.50 Urine Glucose Trace Normal mg/dL Urine Total Protein 46.3 H 1-14 mg/dL Urine Opiates Screen Neg NEGATIVE Urine Fentanyl Screen Neg NEGATIVE Urine Barbiturates Screen Neg NEGATIVE Urine Phencyclidine Screen Neg NEGATIVE Urine Amphetamines Screen Neg NEGATIVE Urine Benzodiazepines Screen Neg NEGATIVE Urine Cocaine Screen Neg NEGATIVE Urine Cannabinoids Screen Neg NEGATIVE Assessment Assessment IUP at 38w 6d LGA Decreased Amniotic Fluid IOL for above Pre E w/o severe features Category I FHR Tracing Plan Plan Continue current plan (Co-managing with Dr Poon) Plan discussed with: Patient, Spouse CECYEMELYN Isidro RESENDEZ Oct 28, 2024 01:54
[2024-10-28] MEDS: PHISODERM TOP SOLN 240ML BTL TOP PRN (04:20)
[2024-10-28] MEDS: WITCH HAZEL-GLYCERIN PAD TOP PRN (04:20)
[2024-10-28] MEDS: DERMOPLAST 60ML BOTTLE TOP PRN (04:20)
[2024-10-28] MEDS: LACT. RINGERS/OXYTOCIN 20UNITS 500 ML IV ONE ×2 (04:33→05:06)
--- NOTE | 2024-10-28 05:42 | LDN2 ---
Labor and Delivery Note Date 10/28/24 @ 0359 Age 24 1 Para 0 AB 0 EDC 11/05/2024 EGA 38w 6d Diagnosis IUP at 38w 6d Decreased amniotic Fluid LGA pre Eclampsia w/o sever features IOL for above Vaginal Delivery: VTX Vacuum Assisted: No Placenta: Spontaneous Sex: Female Weight 3565g (7Lbs 14oz) Apgars 7 at one minute & 9 at five minutes of life Nuchal Cord Transected: No (Nuchal Cord reduced) Amniotic Fluid: Meconium Stained (Terminal meconium) Anesthesia Labor Epidural Episiotomy: No Extension: Yes Repaired with First degree bilateral labial laceration repaired with 2-0 Vicryl EBL 100mL Labs Blood Bank 10/27/24 10:49: Blood Type O POSITIVE Complications None Conditions Mother and baby stable Corn Breeder Somu Comments/Significant Med [place] At 0359, 24yo, now delivered a viable Female infant by w/ score 7 & 9 at one & five minutes of life respectively. TONIA position. Nuchal Cord reduced. Passed meconium at delivery Infant placed skin to skin on pts chest. Cord clamped and cut immediately. care assumed by nursery RN. Cord blood sent. Pitocin IV started. Intact 3-vessel cord placenta delivered spontaneously, Mitch. Pitocin IV bolus started. Placenta sent to pathology. Patient had labor epidural anesthesia. First degree bilateral labial laceration noted and was repaired with 2-0 Vicryl suture. Cervix/vagina inspected via SSE. Cervix intact. Rectal mucosa and sphincter intact. Rectal exam performed, WNL, not involved. Fundus at U, firm, midline, and light lochia. QBL 100ml. VSS. Count correct x2. Patient to care and baby to couplet care, both stable. EMELYN SAM CNM Oct 28, 2024 05:42
[2024-10-28] MEDS: MAGNESIUM SULFATE 40MG/ML 1,000 ML IV SCH (05:57)
[2024-10-28] MEDS ORDERED: ONDANSETRON HCL 4 MG/2 ML VIAL IV PRN (06:00)
[2024-10-28] MEDS ORDERED: ACETAMINOPHEN 325 MG TAB PO PRN ×2 (06:00→06:45)
[2024-10-28] MEDS ORDERED: IBUPROFEN 600 MG TAB PO PRN (06:45)
--- NOTE | 2024-10-28 08:50 | PRN ---
Misceleneous Note Note Note Called in because nurses unable to pull epidural catheter out. Ms. Ramírez, a 24 y/o female is S/P PCEA with lumbar epidural for which was uneventful. Ms. Ramírez was positioned sitting, in "epidural" position and catheter was carefully pulled with tip intact. No pain, oozing, tenderness, or redness around the epidural area. is back to baseline. JUNE DANGELO MD Oct 28, 2024 08:49
[2024-10-28] MEDS ORDERED: ceFAZolin 1GM/50ML 50 ML IV SCH (09:00)
[2024-10-28] MEDS ORDERED: DOCUSATE SOD 100 MG CAP PO SCH (22:00)
[2024-10-29] VITALS (7 sets, daily range): BP systolic 127–148; BP diastolic 67–82; PULSE 69–104; RESP 16–18; TEMP 97.6–98.8; O2SAT 96–99
--- NOTE | 2024-10-29 07:19 | DVHPN2 ---
Progress Note Date Seen: Oct 29, 2024 Subjective PPD#1 s/p , Induction of labor, had pre-eclampsia Off of Magnesium sulfate post delivery now x > 6 hours Denies headache, epigastric pain or visual changes. Lochia mild. vital signs Vital Sign Date Time Temp Pulse Resp B/P (MAP) Pulse Ox O2 Delivery O2 Flow Rate FiO2 10/29/24 03:00 98.4 104 18 134/82 (99) 97 98.4 10/28/24 23:00 Room Air Total Intake and Output 10/28/24 10/28/24 10/29/24 15:00 23:00 07:00 Output Total 1800 ml 2950 ml 1000 ml Balance -1800 ml -2950 ml -1000 ml medications Current Medications Medications Dose Ordered Sig/Lillian Route Start Time Stop Time Status Last Admin Dose Admin Lactated Ringer's 1,000 ml @ 125 mls/hr Q8H IV 10/27/24 10:15 10/27/24 23:43 125 MLS/HR Shonna Anderson 1 pad PRN PRN TOP 10/27/24 10:15 10/28/24 04:20 1 PAD Sodium Lauryl Sulfate 240 ml PRN PRN TOP 10/27/24 10:15 10/28/24 04:20 240 ML Benzocaine 1 applic PRN PRN TOP 10/27/24 10:15 10/28/24 04:20 1 APPLIC Butorphanol Tartrate 1 mg Q4HPRN PRN IV 10/27/24 10:15 Cancel Butorphanol Tartrate 2 mg Q4HPRN PRN IV 10/27/24 10:15 Cancel Lidocaine HCl 20 ml ONCE PRN IJ 10/27/24 10:15 Cancel Terbutaline Sulfate 0.25 mg ONCE PRN SC 10/27/24 21:45 Cancel Hydralazine HCl 5 mg Q20MP PRN IV 10/27/24 22:30 Magnesium Sulfate 1,000 ml @ 50 mls/hr Q20H IV 10/27/24 23:45 10/28/24 21:00 50 MLS/HR Cefazolin Sodium 50 ml @ 100 mls/hr Q8H IV 10/28/24 09:00 Cancel Ibuprofen 600 mg Q6HP PRN PO 10/28/24 06:00 Acetaminophen 650 mg Q4HP PRN PO 10/28/24 06:00 Ondansetron HCl 4 mg Q4HP PRN IV 10/28/24 06:00 Docusate Sodium 200 mg HS PO 10/28/24 22:00 Ibuprofen 600 mg Q6HP PRN PO 10/28/24 06:45 Docusate Sodium 200 mg HS PO 10/28/24 22:00 laboratory and microbiology Laboratory Tests 10/27/24 10:49 Test 10/27/24 10:49 Range/Units Serum Glucose 102 74-106 mg/dL Objective O: AFVSS Chest: heart and lung sounds normal. Abd soft, non-tender, fundus firm, BS, no rebound or guarding, Incision - dressing and incision clean, dry, intact Ext Neg Homans, Non-tender, edema Lochia - minimal Labs reviewed Assessment/Plan PPD#1 s/p Pre-eclampsia, delivered Plan: Continue observation supportive care observe BP's , treat only if SBP > 150 or DBP > 100 Plan discussed with: Patient, Spouse Visit Coding OBGYN Date of Service: Oct 29, 2024 Billing Provider: PADMAJA MARKHAM DO OCCUPATIONAL THERAPIST'S ASSISTANT Common Visit Codes: [id number] INP/OBS CARE(MOD) PADMAJA MARKHAM DO Oct 29, 2024 07:19
[2024-10-29] MEDS: IBUPROFEN 600 MG TAB PO PRN (07:29)
[2024-10-29 08:06] LABS: RPR Non Reactive (Non Reactive)
[2024-10-29 09:43] LABS: Basophils # (auto) 0 10 ^3/uL (0-0.2); Basophils % (auto) 0.4 % (0.0-2.0); Eosinophils # (auto) 0.2 10 ^3/uL (0-0.8); Eosinophils % (auto) 2.1 % (0.0-7.0); Hematocrit 33.9 % (36.0-46.0); Hemoglobin 11.3 g/dL (12.2-16.2); Lymphocytes # (auto) 2.1 10 ^3/uL (0.4-5.4); Lymphocytes % (auto) 19.5 % (10.0-50.0); Mean Corpuscular Hemoglobin 32.3 pg (28.0-32.0); Mean Corpuscular Hgb Conc. 33.5 g/dL (32.0-36.0); Mean Corpuscular Volume 96.4 fL (80.0-100.0); Monocytes # (auto) 0.8 10 ^3/uL (0-1.3); Monocytes % (auto) 7.6 % (0.0-12.0); Neutrophils # (auto) 7.7 10 ^3/uL (1.6-8.6); Neutrophils % (auto) 70.4 % (37.0-80.0); Platelet Count (auto) 204 10^3/uL (140-450); Red Blood Cells 3.51 10^6/uL (4.0-5.20); White Blood Cell 10.9 10^3/uL (4.4-10.8)
[2024-10-29 11:40] LABS: Alanine Aminotransferase 15 U/L (7-40); Anion Gap 9 (5-15); BUN/Creatinine Ratio 14.8 (10.0-20.0); Calcium 9.3 mg/dL (8.7-10.4); Carbon Dioxide 23 mmol/L (20-31); Glucose 82 mg/dL (74-106); Potassium 4.3 mmol/L (3.5-5.1); Sodium 141 mmol/L (136-145)
[2024-10-29 11:42] LABS: Albumin 3.6 g/dL (3.2-4.8); Aspartate Aminotransferase 20 U/L (13-40); Bilirubin, Total 0.3 mg/dL (0.2-1.0); Total Protein 5.9 g/dL (5.7-8.2)
[2024-10-29 11:43] LABS: Blood Urea Nitrogen 9 mg/dL (9-23); Chloride 109 mmol/L (98-107)
[2024-10-29 12:37] LABS: Alkaline Phosphatase 130 U/L (46-116)
[2024-10-29] MEDS: DOCUSATE SOD 100 MG CAP PO SCH (23:38)
[2024-10-30] MEDS ORDERED: DOCU-94 PO (01:50)
[2024-10-30] MEDS ORDERED: IBU600T PO (01:50)
[2024-10-30] MEDS ORDERED: PREN1TAB71 PO (01:50)
--- NOTE | 2024-10-30 01:51 | DVHPN2 ---
Progress Note Date Seen: Oct 30, 2024 Subjective S: bleeding is less, eating food without issues, denies lightheaded/dizziness, pain well controlled with oral medications, no concerns with urinating, passing flatus, no BM yet, ambulating well, and formula. Denies VIVAS/vision changes/RUQ pain. vital signs Vital Sign Date Time Temp Pulse Resp B/P (MAP) Pulse Ox O2 Delivery O2 Flow Rate FiO2 10/29/24 23:30 98.5 87 18 140/74 (96) 98 98.5 10/29/24 19:00 Room Air 0.0 Total Intake and Output 10/29/24 10/29/24 10/30/24 15:00 23:00 07:00 Output Total 1200 ml Balance -1200 ml medications Current Medications Medications Dose Ordered Sig/Lillian Route Start Time Stop Time Status Last Admin Dose Admin Lactated Ringer's 1,000 ml @ 125 mls/hr Q8H IV 10/27/24 10:15 10/27/24 23:43 125 MLS/HR Shonna Anderson 1 pad PRN PRN TOP 10/27/24 10:15 10/28/24 04:20 1 PAD Sodium Lauryl Sulfate 240 ml PRN PRN TOP 10/27/24 10:15 10/28/24 04:20 240 ML Benzocaine 1 applic PRN PRN TOP 10/27/24 10:15 10/28/24 04:20 1 APPLIC Butorphanol Tartrate 1 mg Q4HPRN PRN IV 10/27/24 10:15 Cancel Butorphanol Tartrate 2 mg Q4HPRN PRN IV 10/27/24 10:15 Cancel Lidocaine HCl 20 ml ONCE PRN IJ 10/27/24 10:15 Cancel Terbutaline Sulfate 0.25 mg ONCE PRN SC 10/27/24 21:45 Cancel Hydralazine HCl 5 mg Q20MP PRN IV 10/27/24 22:30 Magnesium Sulfate 1,000 ml @ 50 mls/hr Q20H IV 10/27/24 23:45 10/28/24 21:00 50 MLS/HR Cefazolin Sodium 50 ml @ 100 mls/hr Q8H IV 10/28/24 09:00 Cancel Ibuprofen 600 mg Q6HP PRN PO 10/28/24 06:00 10/29/24 19:27 600 MG Acetaminophen 650 mg Q4HP PRN PO 10/28/24 06:00 Ondansetron HCl 4 mg Q4HP PRN IV 10/28/24 06:00 Docusate Sodium 200 mg HS PO 10/28/24 22:00 10/29/24 23:38 200 MG Ibuprofen 600 mg Q6HP PRN PO 10/28/24 06:45 Docusate Sodium 200 mg HS PO 10/28/24 22:00 laboratory and microbiology Laboratory Tests 10/29/24 08:35 Test 10/29/24 08:35 Range/Units Serum Glucose 82 74-106 mg/dL Objective O: VSS Chest: heart sounds normal and lung sounds clear bilaterally Abd: soft, non-tender, fundus at U/firm/midline, active bowel sounds, no rebound or guarding Perineum: sutures intact, edges well approximated, no erythema/edema noted Ext: Non-tender, No edema, 2+ BLE DTRs Lochia: minimal See lab results Problems(with codes): (1) Preeclampsia (2) Obstetric labial laceration, delivered, current hospitalization (3) (normal spontaneous vaginal delivery) Assessment/Plan A: 24yo now PPD#2 s/p preeclampsia Rh+ Rubella Immune Breast and formula feeding P: D/C home today Rx sent to pharmacy precautions and preeclampsia warning signs reviewed F/U with [facility] office in 1 week Plan discussed with: Patient, Spouse Visit Coding OBGYN Date of Service: Oct 30, 2024 Billing Provider: ECTOR COLE CNM RN OR LVN Common Visit Codes: [id number]/OBS DISCH DAY <30MIN ECTOR COLE CNM Oct 30, 2024 01:51
--- NOTE | 2024-10-30 01:51 | DVHDS2 ---
Obstetrics Discharge Summary Obstetrics Discharge Summary Date of Admission: Oct 27, 2024 Date of Discharge: Oct 30, 2024 Reason For Admission: Induction of Labor (oligo, LGA, preeclampsia) Procedures: NST, Ultrasound, Mgmt of Obstetrics Compli (preeclampsia) Intrapartum Procedures: Spontaneous vaginal deliv Procedures: Hct/date: (10/29/24), Hgb/date: (10/29/24) Operative Complicat: Laceration (bilateral labial) Discharge Diagnosis: Term -Delivered, Preeclampsia Discharge Information: Activity (as tolerated, no heavy lifting and nothing in the vagina for 6 weeks), Diet (Routine), Medications (Rx sent), Instructions (Routine), Discharge to (Home), Accompanied by (partner), Discarge date (10/30/24) Visit Coding OBGYN Date of Service: Oct 30, 2024 Billing Provider: ECTOR COLE CNM [employer]STATE UTILIZATION OFFICER Common Visit Codes: [id number]/OBS DISCH DAY <30MIN ECTOR COLE CNM Oct 30, 2024 01:51
[2024-10-30 03:10] VITALS: BP 113/67; PULSE 77; RESP 18; TEMP 98.2; O2SAT 97
[2024-10-30 07:05] VITALS: BP 116/61; PULSE 72; RESP 18; TEMP 98.6; O2SAT 97
[2024-10-31 10:06] LABS: Treponema Pallidum Ab LC Non Reactive (Non Reactive)
== END 2024-10-30 11:15 | disposition home or self-care (01) | DRG 560 ==
LOC: LDRP 10:04 → NUR 10-29 15:08 → LDRP 10-29 15:13
PROVIDERS: ADMIT Obstetrics & Gynecology; ATTEND Obstetrics & Gynecology
PROC: 10E0XZZ Delivery of Products of Conception, External Approach (ICD-10-PCS; principal; 2024-10-28)
PROC: 0HQ9XZZ Repair Perineum Skin, External Approach (ICD-10-PCS; 2024-10-28)
PROC: 3E0R3BZ Introduction of Anesthetic Agent into Spinal Canal, Percutaneous Approach (ICD-10-PCS; 2024-10-28)
PROC: 00HU33Z Insertion of Infusion Device into Spinal Canal, Percutaneous Approach (ICD-10-PCS; 2024-10-28)
DX: O14.04 Mild to moderate pre-eclampsia, complicating childbirth (principal); Z37.0 Single live birth; O36.63X0 Maternal care for excessive fetal growth, third trimester, not applicable or unspecified; O70.0 First degree perineal laceration during delivery; O77.0 Labor and delivery complicated by meconium in amniotic fluid; O69.81X0 Labor and delivery complicated by cord around neck, without compression, not applicable or unspecified; Z3A.38 38 weeks gestation of pregnancy
CPT/HCPCS: 36415; 59025; 59409; 62282; 76818; 80053; 80307; 81001; 82570; 83735; 84156; 84550; 85025; 85610; 85730; 86592; 86780; 86803; 86850; 86900; 86901; 94760; 94762; 96360; 96361; 96365; 96366; G0378; J2590